=== PATIENT | female | born 1985 | race Two or more races ===

== ENCOUNTER 2022-09-25 07:23 | Emergency (ER) | payer BC, OTHER ==
[~2022-09-25] VITALS: Ht 162.6 cm; Wt 82.6 kg
--- NOTE | 2022-09-25 07:42 | NUR ---
C/O RIGHT SIDED ABDOMINAL PAIN X 4 DAYS. PT DENIES NAUSEA, VOMITING, OR DIARRHEA. PT STATES "I MAY HAVE A HERNIA FROM MY GASTRIC BYPASS SURGERY ON September". PT AMBULATED TO BED WITH STEADY GAIT. BREATHING EVEN AND UNLABORED. CONNECTED TO MONITOR, VSS. AAOX4. AWAITING MD FOR EVAL.
--- NOTE | 2022-09-25 07:43 | NUR ---
AT BEDSIDE FOR EVAL.
--- NOTE | 2022-09-25 07:48 | NUR ---
Patient discharged to home in stable condition. Written and verbal after care instructions given. Patient verbalizes understanding of instruction.
[2022-09-25 07:49] VITALS: BP 102/69
== END 2022-09-25 07:50 | disposition home or self-care (01) ==
LOC: ER 07:28
DX: G89.18 Other acute postprocedural pain (principal); R10.31 Right lower quadrant pain